=== PATIENT | male | born 1965 | race Caucasian/White ===

== ENCOUNTER 2025-05-30 22:07 | Emergency (ER) | payer MEDICAID, OTHER ==
[~2025-05-30] VITALS: Ht 177.8 cm; Wt 90.0 kg
[2025-05-30 23:42] LABS: Hematocrit 43.3 % (41.0-53.0); Hemoglobin 14.7 g/dL (13.5-17.5); Mean Corpuscular Hemoglobin 31.2 pg (28.0-32.0); Mean Corpuscular Volume 91.7 fL (80.0-100.0); Nucleated Red Blood Cells % 0.1 %
[2025-05-30 23:48] LABS: Chloride 105 mmol/L (98-107); Potassium 3.5 mmol/L (3.5-5.1); Sodium 139 mmol/L (136-145)
[2025-05-30 23:49] LABS: Anion Gap 8 (5-15); Carbon Dioxide 26 mmol/L (20-31)
[2025-05-30 23:50] LABS: Calcium 9.2 mg/dL (8.7-10.4)
[2025-05-30 23:54] LABS: BUN/Creatinine Ratio 18.7 (10.0-20.0); Blood Urea Nitrogen 14 mg/dL (9-23)
[2025-05-31 00:01] LABS: Glucose 144 mg/dL (74-106)
--- NOTE | 2025-05-31 00:43 | ED.PDOC ---
History of Present Illness HPI Comments 60-year-old, homeless male who is brought in by ambulance for chief complaint of generalized weakness and dizziness x2 days. Patient reports being in the rain for past several days. 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 Denies having any chest pain, shortness of breath, or further acute symptoms. REVIEW OF SYSTEMS: General: No fever, no chills, or fatigue HEENT: No sore throat, no earache, no congestion, no neck pain. Cardiac: No chest pain. No palpitations. Lungs: No shortness of breath, no cough. GI: No nausea, no vomiting, no diarrhea, no constipation, no abdominal pain : No dysuria, frequency, or urgency. No hematuria. Musculoskeletal: No joint pain , no joint swelling, no extremity edema. Skin: Blister underneath left foot. No rash, no itching. Neuro: No headache, no dizziness, no weakness (And as stated in HPI) PHYSICAL EXAM: General: Awake, alert and oriented. No acute distress. Skin: Open blister underneath left foot. Otherwise, remaining skin is warm, dry and intact. Appropriate color for ethnicity. HEENT: The head is normocephalic and atraumatic. Conjunctivae are clear without exudates or hemorrhage. Sclera is non-icteric. Eyelids are normal in appearance without swelling or lesions. Oral mucosa is pink and moist Neck: The neck is supple with normal range of motion. No JVD. Cardiac: Heart rate and rhythm are normal. No murmurs, gallops, or rubs are auscultated. Respiratory: No signs of respiratory distress. Lung sounds are clear in all lobes bilaterally without rales, rhonchi, or wheezes. Abdominal: Abdomen is soft, non-tender without distention, guarding or rigidity. Bowel sounds are present and normoactive in all four quadrants. Extremities: Lower extremities without edema. Neurological: The patient is awake, alert and oriented to person, place, and time with normal speech. Speech is clear. There is no facial asymmetry. Psychiatric: Appropriate mood and affect. Good judgement and insight. Chief Complaint: General Weakness Time Seen by MD: 23:43 Reviewed Notes: Nurses Notes, Legislative Aide Notes, Medications, Allergies Allergies: Coded Allergies: NO KNOWN ALLERGIES (Unverified , 05/30/25) Information Source: Patient, Emergency Med Personnel Mode of Arrival: EMS Severity: Moderate Timing: Days Duration: Since onset Prehospital treatment: 12 Lead EKG, School [employer] Past Medical History PAST MEDICAL HISTORY: HTN Past Medical History (Other): Arrhythmia Surgical History: Denies all surgeries Family History Family History: Unknown Social History Smoker: Cigarettes Alcohol: Occasionally Drugs: Denies Drug Use Lives In: Homeless Was a procedure done? Was a procedure done?: No Differential Dx Considerations may include: Differential diagnoses considered include but are not limited to back strain or sprain, degenerative disc disease, herniated disc, spinal stenosis, cauda equina syndrome, spinal epidural abscess, spinal fracture, metastatic cancer, aortic dissection, AAA rupture, epidural hematoma, osteomyelitis, pyelonephritis, nephrolithiasis, other X-Ray, Labs, Meds, VS Vital Signs Date Time Temp Pulse Resp B/P (MAP) Pulse Ox O2 Delivery O2 Flow Rate FiO2 05/31/25 04:12 66 18 97 Room Air* 0 21 05/31/25 04:10 98.0 66 18 124/79 (94) 97 98.0 05/30/25 22:13 98.7 98 18 158/101 99 98.7 Lab Test 05/30/25 23:26 Range/Units White Blood Count 5.0 4.4-10.8 10^3/uL Red Blood Count 4.72 4.5-5.90 10^6/uL Hemoglobin 14.7 13.5-17.5 g/dL Hematocrit 43.3 41.0-53.0 % Mean Corpuscular Volume 91.7 80.0-100.0 fL Mean Corpuscular Hemoglobin 31.2 28.0-32.0 pg Mean Corpuscular Hemoglobin Concent 34.1 32.0-36.0 g/dL Red Cell Distribution Width 13.5 11.8-14.3 % Platelet Count 216 140-450 10^3/uL Mean Platelet Volume 8.1 6.9-10.8 fL Neutrophils (%) (Auto) 64.6 37.0-80.0 % Lymphocytes (%) (Auto) 20.2 10.0-50.0 % Monocytes (%) (Auto) 12.8 H 0.0-12.0 % Eosinophils (%) (Auto) 1.7 0.0-7.0 % Basophils (%) (Auto) 0.7 0.0-2.0 % Neutrophils # (Auto) 3.2 1.6-8.6 10 ^3/uL Lymphocytes # (Auto) 1.0 0.4-5.4 10 ^3/uL Monocytes # (Auto) 0.6 0-1.3 10 ^3/uL Eosinophils # (Auto) 0.1 0-0.8 10 ^3/uL Basophils # (Auto) 0 0-0.2 10 ^3/uL Nucleated Red Blood Cells 0.1 % Sodium Level 139 136-145 mmol/L Potassium Level 3.5 3.5-5.1 mmol/L Chloride Level 105 98-107 mmol/L Carbon Dioxide Level 26 20-31 mmol/L Anion Gap 8 5-15 Blood Urea Nitrogen 14 9-23 mg/dL Creatinine 0.75 0.700-1.30 mg/dL Glomerular Filtration Rate Calc 104 >90 mL/min BUN/Creatinine Ratio 18.7 10.0-20.0 Serum Glucose 144 H 74-106 mg/dL Calcium Level 9.2 8.7-10.4 mg/dL Troponin I High Sensitivity 23 </=54 ng/L Current Medications Medications (Trade) Dose Ordered Sig/Mario Route Start Time Stop Time Status Last Admin Sodium Chloride 1,000 ml @ 1,000 mls/hr Q1H ONCE IV 05/31/25 00:30 05/31/25 01:29 DC 05/31/25 04:23 Meclizine HCl (Antivert Tablet) 50 mg ONCE ONCE PO 05/31/25 00:30 05/31/25 00:31 DC 05/31/25 04:23 Time of 1ST Reevaluation: 00:41 Reevaluation 1ST: Unchanged Patient Education/Counseling: Need For Follow Up Family Education/Counseling: No Family Present SEPSIS Sepsis Screen Date sepsis recognized/suspect: May 30, 2025 Time Sepsis recognized/suspect: 2212 Recent Procedure: No On Antibiotic Therapy: No Respiratory Rate >20: No Heart Rate >90: Yes Temp<36 C (96.8 F) or >38.3 C: No SBP <90 or MAP <65 mmHG: No New Acute Mental Status Change: No Is the patient on CPAP, BIPAP,: No Physician Orders Rapid Influenza A&B (05/30/25 23:05) Covid19 Antigen Lucía (05/30/25 ) Orthostatic Vital Signs (05/31/25 ) Vital Signs Date Time Temp Pulse Resp B/P (MAP) Pulse Ox O2 Delivery O2 Flow Rate FiO2 05/31/25 04:12 66 18 97 Room Air* 0 21 05/31/25 04:10 98.0 66 18 124/79 (94) 97 98.0 05/30/25 22:13 98.7 98 18 158/101 99 98.7 Laboratory Tests Test 05/30/25 23:26 White Blood Count 5.0 10^3/uL (4.4-10.8) Medications Medications Dose Ordered Sig/Mario Route Start Time Stop Time Status Last Admin Dose Admin Meclizine HCl 50 mg ONCE ONCE PO 05/31/25 00:30 05/31/25 00:31 DC 05/31/25 04:23 Sodium Chloride 1,000 ml @ 1,000 mls/hr Q1H ONCE IV 05/31/25 00:30 05/31/25 01:29 DC 05/31/25 04:23 Departure 1 Departure Time of Disposition: 05:11 Impression: Primary Impression: General weakness Additional Impression: Dizziness Disposition: 01 HOME / SELF CARE / HOMELESS Condition: Stable Additional Instructions: ED DISCHARGE INSTRUCTIONS Instructions: Please read all instructions provided in this packet carefully. Although you have been discharged from the Emergency Department, this does not mean that you have a "clean bill of health". No definitive diagnosis for your symptoms has been made today. It is possible that you are in the process of developing a serious illness. This is why you must return to the ED without fail if any new or worsening symptoms (especially if your symptoms include chest pain, trouble breathing, abdominal pain, fever, headache, confusion, trouble seeing, or trouble walking) It is also very important that you see a primary care provider (PCP) within the next 3-5 days to follow up. If you are unable to get an appointment, return to the ED for re-evaluation. Lightheadedness or Faintness: Care Instructions Overview Lightheadedness is a feeling that you are about to faint or "pass out." You do not feel as if you or your surroundings are moving. It is different from vertigo, which is the feeling that you or things around you are spinning or tilting. Lightheadedness usually goes away or gets better when you lie down. If lightheadedness gets worse, it can lead to a fainting spell. It is common to feel lightheaded from time to time. It may be caused by many things. These include allergies, dehydration, illness, and medicines. Lightheadedness usually is not caused by a serious problem. It often is caused by a short-lasting drop in blood pressure and blood flow to your head that occurs when you get up too quickly from a seated or lying position. Follow-up care is a ribera part of your treatment and safety. Be sure to make and go to all appointments, and call your doctor if you are having problems. It's also a good idea to know your test results and keep a list of the medicines you take. How can you care for yourself at home? Lie down for 1 or 2 minutes when you feel lightheaded. After lying down, sit up slowly and remain sitting for 1 to 2 minutes before slowly standing up. Avoid movements, positions, or activities that have made you lightheaded in the past. Get plenty of rest, especially if you have a cold or flu, which can cause lightheadedness. Make sure you drink plenty of fluids, especially if you have a fever or have been sweating. Do not drive or put yourself and others in danger while you feel lightheaded. When should you call for help? Call 911 anytime you think you may need emergency care. For example, call if: You passed out (lost consciousness). You have symptoms of a stroke. These may include: Sudden numbness, tingling, weakness, or loss of movement in your face, arm, or leg, especially on only one side of your body. Sudden vision changes. Sudden trouble speaking. Sudden confusion or trouble understanding simple statements. Sudden problems with walking or balance. A sudden, severe headache that is different from past headaches. You have symptoms of a heart attack. These may include: Chest pain or pressure, or a strange feeling in the chest. Sweating. Shortness of breath. Nausea or vomiting. Pain, pressure, or a strange feeling in the back, neck, jaw, or upper belly or in one or both shoulders or arms. Lightheadedness or sudden weakness. A fast or irregular heartbeat. After you call 911, the high frequency mill operator may tell you to chew 1 adult-strength or 2 to 4 low-dose aspirin. Wait for an ambulance. Do not try to drive yourself. Watch closely for changes in your health, and be sure to contact your doctor if: Your lightheadedness gets worse or does not get better with home care. Credits for Lightheadedness or Faintness: Care Instructions Current as of: January 05, 2024 Author: [employer] Staff Clinical Review Board [employer] education is reviewed by a team that includes physicians, nurses, advanced practitioners, registered dieticians, and other healthcare professionals. Comments MDM: Extensive evaluation was performed in attempt to identify or rule out: (See differential diagnosis section) The following tests were ordered, and results were reviewed by me and discussed with patient: (See diagnostic results section) The following test were independently interpreted by me: EKG, COVID-19 antigen Savita N rapid influenza a and B test, troponin, BMP, CBC I reviewed and agreed with the following test results read by other providers: N/A I reviewed the following notes from the pt's past medical encounters: N/A Additional information was gathered from interviewing the following independent historians: EMS personnel Discussion of management or test interpretation with external physician/other qualified health rn patient care: N/A Addressed [ ]one or more chronic illnesses with severe exacerbation, progression, or side effects of treatment: [ ]an acute or chronic illness that poses a threat to life or bodily function: [ ] Decision regarding hospitalization or escalation of hospital level of care: Risk and benefits of admission for further treatment of patient's condition was considered. Due to patient's current clinical condition, high risk of decline and poor outcome if discharged and need for further inpatient management and monitoring, patient will be admitted to the hospital. Drug therapy requiring intensive monitoring for toxicity: N/A Parenteral controlled substances: N/A Decision regarding elective major surgery with identified patient or procedure risk factors: N/A Decision regarding emergency major surgery: N/A Decision not to resuscitate or to de-escalate care because of poor prognosis: N/A Diagnosis or treatment significantly limited by social determinants of health: N/A Decision regarding hospitalization or escalation of hospital level of care: Risks and benefits of admission for further treatment of patient's condition was considered however due to patient's stable condition patient will be discharged to follow up closely or return to care for worsening of condition or inability to follow up. Critical Care Note Critical Care Time?: No Stability Stability form required: No Heart Score Heart Score: Heart Score Response (Comments) Value History N/A 0 EKG N/A 0 Age N/A 0 Risk Factors N/A 0 Troponin N/A 0 Total 0 I personally scribed for MANNY MARIE MD ([email or web address]) on 05/31/25 at 00:43. Electronically submitted by Raoul Mazariegos ([email or web address]). I personally scribed for MANNY MARIE MD ([email or web address]) on 05/31/25 at 06:01. Electronically submitted by Raoul Mazariegos ([email or web address]). I personally scribed for MANNY MARIE MD ([email or web address]) on 05/31/25 at 06:16. Electronically submitted by Raoul Mazariegos ([email or web address]). MANNY MARIE MD May 31, 2025 00:43
--- NOTE | 2025-05-31 01:11 | ECG ---
[facility] Test Date: 2025-05-30 Test Time: 22:18:53 Pat Name: BIBIANA FERNANDES Department: [facility] ED Patient ID: [facility]-[id number] Room: Gender: M Tax Adjuster: : 1965 Requested By: MANNY MARIE Order Number: [id number] Reading MD: Kaiden Frey Measurements Intervals [place] Rate: 83 P: 0 MO: 0 QRS: 12 QRSD: 93 T: 68 QT: 371 QTc: 436 Interpretive Statements Atrial fibrillation Abnormal R-wave progression, early transition Nonspecific T abnormalities, lateral leads ST elevation, consider inferior injury Artifact in lead(s) I,II,III,aVR,aVL,V1 Electronically Signed On 06-01-2025 10:32:41 PST by Kaiden Frey Please click the below link to view image of tracing.
[2025-05-31 04:10] VITALS: BP 124/79; TEMP 98
[2025-05-31 04:12] VITALS: PULSE 66; RESP 18; O2SAT 97
[2025-05-31] MEDS: MECLIZINE HCL 25 MG TAB PO ONE (04:23)
[2025-05-31] MEDS: SODIUM CHLORIDE 0.9% 1,000 ML IV ONE (04:23)
[2025-05-31 07:38] LABS: COVID19 ANTIGEN SOFIA FIA NEGATIVE (NEGATIVE)
== END 2025-05-31 06:31 | disposition home or self-care (01) ==
LOC: ER 22:07 → EDBD 22:07 → ER 05-31 06:31
DX: R53.1 Weakness (principal); R42 Dizziness and giddiness; I10 Essential (primary) hypertension; F17.210 Nicotine dependence, cigarettes, uncomplicated; Z59.00 Homelessness unspecified; Z79.899 Other long term (current) drug therapy; Z20.822 Contact with and (suspected) exposure to COVID-19
CPT/HCPCS: 36415; 80048; 82947; 84484; 85025; 87426; 87804; 93005; 96360; 99284; J7030; J8597